=== PATIENT | female | born 2000 | race Two or more races ===

== ENCOUNTER 2025-01-09 10:34 | Emergency (ER) | payer OTHER ==
[~2025-01-09] VITALS: Ht 162.6 cm; Wt 62.6 kg
[2025-01-09 11:06] VITALS: BP 118/78; O2SAT 100
[2025-01-09] MEDS ORDERED: ACETAMINOPHEN 500 MG GEL..CAP PO ONE ×2 (12:12→12:15)
[2025-01-09 12:26] LABS: HEMATOCRIT 42.4 % (36.0-45.00); HEMOGLOBIN 13.7 g/dL (12.0-15.00); MEAN CORPUSCULAR HEMOGLOBIN 26.2 pg (27.00-32.0); MEAN CORPUSCULAR HGB CONC 32.4 g/dl (32.0-36.0); PLATELET COUNT 238 K/uL (150-450); RED BLOOD COUNT 5.24 M/uL (4.00-6.00); RED CELL DISTRIBUTION WIDTH 13.3 % (11.5-14.5)
[2025-01-09 12:57] LABS: CALCIUM 9.9 mg/dL (8.5-10.1); CREATININE SERUM 0.71 mg/dL (0.55-1.02); GFR 100.3; POTASSIUM 4.16 mEq/L (3.5-5.1)
[2025-01-09] MEDS ORDERED: AMOX1TAB5 PO (13:28)
[2025-01-09] MEDS ORDERED: FLONASE16 GM NASAL (13:28)
== END 2025-01-09 13:31 | disposition home or self-care (01) ==
LOC: ER 10:37
PROVIDERS: General Practice
DX: J32.9 Chronic sinusitis, unspecified (principal); Z88.6 Allergy status to analgesic agent; Z91.018 Allergy to other foods

== ENCOUNTER 2025-05-17 22:36 | Emergency (ER) | payer OTHER ==
[~2025-05-17] VITALS: Ht 162.6 cm; Wt 66.2 kg
[~2025-05-17 22:36] MED LIST: AMOX1TAB5 PO; FLONASE16 GM NASAL
[2025-05-18] MEDS ORDERED: METOCLOPRAMIDE HCL 5 MG/ML VIAL IM STA (03:25)
[2025-05-18] MEDS ORDERED: FAMOtidine 10 MG/ML (4ML VIAL) IV PUSH STA (03:26)
[2025-05-18 05:05] LABS: BASO % 0.5 % (0.1-1.2); EOS # 0.13 (0.04-0.54); EOS % 1.5 % (0.7-7.0); LYMPH # 2.39 (1.18-3.74); LYMPH % 27.7 % (19.3-53.1); MEAN PLATELET VOLUME 10.80 fl (9.4-12.4); MONO # 0.47 (0.24-0.82); MONO % 5.5 % (4.7-12.5); NEUT # 5.54 (1.56-6.13); NEUT % 64.2 % (34.0-71.1); RED CELL DISTRIBUTION WIDTH 13.2 % (11.6-14.4)
[2025-05-18 05:34] LABS: COVID-19 AG NEGATIVE (NEGATIVE)
[2025-05-18 05:55] LABS: ALT/SGPT 18.0 U/L (12-78); AST/SGOT 12.0 U/L (15-37); BILIRUBIN TOTAL 0.22 mg/dL (0.3-1.2); BUN CREA RATIO 21.0 (7.0-25.0); CREATININE SERUM 0.56 mg/dL (0.55-1.02); GFR 131.9; GLOBULINA 4.2 G/DL (2.4-3.5); GLUCOSE FASTING 85.0 mg/dL (65-100); OSMOLALITY SERUM 277.0 MOSM/KG (275-295)
[2025-05-18 06:28] LABS: TSH 2.33 uIU/mL (0.358-3.74)
[2025-05-18 07:05] LABS: HCG QUANTITATIVE 87756.0 mUI/mL (1-3)
== END 2025-05-18 06:48 | disposition home or self-care (01) ==
LOC: ER 22:36
DX: O99.511 Diseases of the respiratory system complicating pregnancy, first trimester (principal); J06.9 Acute upper respiratory infection, unspecified; O21.9 Vomiting of pregnancy, unspecified; Z3A.12 12 weeks gestation of pregnancy; Z20.822 Contact with and (suspected) exposure to COVID-19; Z88.6 Allergy status to analgesic agent; Z91.014 Allergy to mammalian meats; Z91.018 Allergy to other foods

== ENCOUNTER 2025-10-13 19:27 | Emergency (ER) | payer OTHER ==
[~2025-10-13] VITALS: Ht 162.6 cm; Wt 75.7 kg
[2025-10-13 20:19] VITALS: BP 115/77; O2SAT 96
[2025-10-13] MEDS ORDERED: ACETAMINOPHEN 500 MG GEL..CAP PO STA (20:37)
[2025-10-13] MEDS ORDERED: CETIRIZINE HCL 5 MG/5 ML ML PO STA (20:37)
[2025-10-13] MEDS ORDERED: GUAIFENESIN 100 MG/5 ML BLIST.PACK PO STA (20:37)
[2025-10-13] MEDS ORDERED: 0.9 % SODIUM CHLORIDE 500 ML IV STA (20:38)
[2025-10-13 22:26] LABS: BASO % 0.4 % (0.1-1.2); EOS # 0.17 (0.04-0.54); EOS % 1.7 % (0.7-7.0); LYMPH # 0.90 (1.18-3.74); LYMPH % 9.2 % (19.3-53.1); MEAN PLATELET VOLUME 11.20 fl (9.4-12.4); MONO # 1.02 (0.24-0.82); MONO % 10.5 % (4.7-12.5); NEUT # 7.42 (1.56-6.13); NEUT % 76.4 % (34.0-71.1); RED CELL DISTRIBUTION WIDTH 13.6 % (11.6-14.4)
[2025-10-13 23:29] LABS: BUN CREA RATIO 13.0 (7.0-25.0); CREATININE SERUM 0.52 mg/dL (0.55-1.02); GFR 142.54; GLUCOSE FASTING 92.0 mg/dL (65-100); OSMOLALITY SERUM 277.0 MOSM/KG (275-295)
[2025-10-13 23:54] LABS: URINE APPEARANCE Clear; URINE BILIRRUBIN Negative (NEGATIVE); URINE BLOOD Negative; URINE COLOR Yellow; URINE GLUCOSE Negative (NEGATIVE); URINE KETONE 15 (NEGATIVE); URINE LEUKOCYTE Large; URINE NITRATE Negative; URINE PROTEIN 30 (NEGATIVE); URINE UROBILINOGEN 0.2 E.U./dl
[2025-10-13 23:55] LABS: URINE EPITHELIAL CELLS 88.3 uL (0.0-38.8); URINE RBC 10.9 uL (0.0-20.8); URINE WBC 637.9 uL (0.0-23.2)
[2025-10-13 23:57] LABS: URINE CAST 1.13 uL (0.0-1.40)
[2025-10-14 00:19] LABS: COVID-19 AG NEGATIVE (NEGATIVE)
[2025-10-14] MEDS ORDERED: CEFTRIAXONE SODIUM 1,000 MG VIAL IV STA (00:27)
[2025-10-14 02:56] LABS: ALT/SGPT 19 U/L (12-78); AST/SGOT 38 U/L (15-37); BILIRUBIN TOTAL 0.31 mg/dL (0.3-1.2); BILIRUBIN,CONJUGATED < 0.10 mg/dL (0.0-0.2)
== END 2025-10-14 05:45 | disposition home or self-care (01) ==
LOC: ER 19:28
PROVIDERS: General Practice
DX: O26.893 Other specified pregnancy related conditions, third trimester (principal); J32.8 Other chronic sinusitis; Z3A.35 35 weeks gestation of pregnancy; Z20.822 Contact with and (suspected) exposure to COVID-19; Z88.6 Allergy status to analgesic agent; Z91.014 Allergy to mammalian meats; Z91.018 Allergy to other foods